=== PATIENT | female | born 1975 ===

== ENCOUNTER 2024-08-30 16:02 | Emergency (ER) | payer MEDICAID, SELFPAY ==
--- NOTE | ~2024-08-30 | CT_ITS ---
CLINICAL HISTORY: abdominal pain CT abdomen and pelvis with contrast Comparison: None Findings: The lung bases are clear. There is a small hiatal hernia. The liver, spleen, pancreas, and adrenal glands are unremarkable. Patient is status post cholecystectomy. There is a 5 mm nonobstructing left renal stone. Right kidney is unremarkable. There is a fluid collection within the midline anterior abdominal wall measuring 5.2 x 1.7 cm. There appears to be an incision in the anterior abdominal wall and fat stranding suggestive of recent surgery. There is mild colonic diverticulosis. The remainder of the gastrointestinal tract is unremarkable. There are no enlarged lymph nodes. The aorta and IVC appear normal. Patient is status post hysterectomy. The ovaries are grossly unremarkable. There is no fracture or suspicious lytic or sclerotic lesion IMPRESSION: 1. 5.2 x 1.7 cm fluid collection with the midline anterior abdominal wall possibly seroma, abscess, or subacute to chronic hematoma. 2. Apparent incision in the abdominal wall and fat stranding suggestive of recent surgery. 3. Chronic findings as above. This document has been electronically signed by: Marcelo Dickinson MD on 08/31/2024 01:12:24
[2024-08-30 16:57] VITALS: BP 151/95; PULSE 95; RESP 18; TEMP 36.5; O2SAT 99; BMI 29.0
[2024-08-30 20:54] LABS: MANUAL DIFF FLAG NO
[2024-08-30 20:55] LABS: Basophils Percent Auto 0.5 % (0-2); Eosinophils Absolute Auto 0.1 X10*3/uL (0.0-0.4); Eosinophils Percent Auto 1.7 % (0-4); Hematocrit 36.8 % (37.0-47.0); Hemoglobin 11.4 g/dl (12.0-16.0); Imm Gran Abs Auto 0.03 X10*3/uL (0.00-0.03); Imm Gran Pct Auto 0.4 % (0.0-0.4); Lymphocytes Absolute Auto 3.2 X10*3/uL (1.2-4.9); Lymphocytes Percent Auto 42.1 % (20-40); Mean Corpuscular Hemoglobin 24.3 pg (27.0-33.0); Mean Corpuscular Volume 78.5 fL (80.0-98.0); Monocytes Absolute Auto 0.6 X10*3/uL (0.1-1.2); Monocytes Percent Auto 7.5 % (2-11); Neutrophils Absolute Auto 3.6 x10*3/uL (2.0-8.3); Neutrophils Percent Auto 47.8 % (45-73); Platelet Count 243 X10*3/uL (160-400); Red Blood Count 4.69 X10*6/uL (4.20-5.50); Red Cell Distribution Width 15.1 % (11.0-16.0); White Blood Count 7.6 X10*3/uL (4.8-10.8)
[2024-08-30 21:18] LABS: Alanine Aminotransferase 25 U/L (0-31); Albumin Level 4.2 g/dL (3.5-5.0); Alkaline Phosphatase 74 U/L (39-117); Anion Gap 11 (12-20); Aspartate Amino Transferase 21 U/L (5-31); Bilirubin Total 0.2 mg/dL (0.0-1.0); Blood Urea Nitrogen 8 mg/dL (9-16); Calcium 9.1 mg/dL (8.4-10.2); Carbon Dioxide 24 mmol/L (22-29); Chloride 111 mmol/L (96-108); Creatinine Clr Calc Pharmacy 97.8; Estimated Glomerular Filt Rate > 60; Glucose Random 124 mg/dL (60-115); HCG Quantitative < 2 mIU/mL; Lipase 19 U/L (8-78); Potassium 4.2 mmol/L (3.3-5.1); Sodium 142 mmol/L (135-145); Total Protein 7.4 g/dL (6.5-8.0)
[2024-08-31] VITALS: BP 150/79; PULSE 74; RESP 16; TEMP 36.4; O2SAT 100
[2024-08-31] MEDS: iohexoL 350 MG/ML 100 ML INFUS..BTL 85 ML IV (00:17)
--- NOTE | 2024-08-31 02:17 | ED.ABDPAIN ---
HPI - Abdominal Pain General Chief Complaint: Abdominal Pain Stated Complaint: Diverticulitis? Sent by Time Seen by Provider: 08/31/24 00:02 Source: patient Limitations: no limitations History of Present Illness ED Provider: Idalia Kirk PA-C HPI narrative: 49-year-old female who is status post panniculectomy, presents with lower abdominal pain x1 week. Pain over lower abdomen, primarily on the left, it is nonradiating described as cramping. Associated nausea and diarrhea, no active vomiting or fever. Patient does have sick contacts who have had influenza. Patient was seen by her primary care provider who advised that she be assessed in the emergency department. Her doctor already preemptively ordered antibiotics in the event that she required treatment. Related Data Allergies Allergy/AdvReac Type Severity Reaction Status Date / Time acetaminophen [From Percocet] Allergy Hives Verified 08/30/24 16:58 oxycodone [From Percocet] Allergy Hives Verified 08/30/24 16:58 Review of Systems Review of Systems Yes all other systems are reviewed and are negative Constitutional: Denies fatigue and Denies fever(s) Cardiovascular: Denies chest pain Gastrointestinal: Reports abdominal pain, Reports diarrhea and Denies vomiting Endocrine: Denies fatigue PMFSH Past Medical History Attestation statement: The following information was validated with the patient. Social History Social History Smoked in Last 30 Days: No Use of substances other than those prescribed or required for medical reasons: No Advance Directives: No Do you have a plan to hurt others: No Plan Physical Exam ED Vital Signs: Vital Signs - 24 hr 08/30/24 16:57 08/31/24 00:00 Temperature 97.7 F 97.6 F Pulse Rate 95 74 Respiratory Rate 18 16 Blood Pressure 151/95 H 150/79 H Pulse Oximetry 99 100 Oxygen Delivery Method Room Air Room Air BMI result Body Mass Index 29.0 Const Other: Alert Orientation/consciousness: patient oriented x3 Resp Effort & Inspection: normal respiratory effort Cardio Other: Normal peripheral perfusion GI Other: Abdomen is soft, nondistended nontender no guarding Skin Other: Warm dry no rash Neuro General: patient oriented x3, gait normal, no focal motor deficits and CN's II-XI intact bilaterally Psych Other: Cooperative Medical Decision Making Medical Decision Making MDM Narrative: 49-year-old female who is status post panniculectomy, presents with lower abdominal pain x1 week. Pain over lower abdomen, primarily on the left, it is nonradiating described as cramping. Associated nausea and diarrhea, no active vomiting or fever. Patient does have sick contacts who have had influenza. Patient was seen by her primary care provider who advised that she be assessed in the emergency department. Her doctor already preemptively ordered antibiotics in the event that she required treatment. No recent travel or use of antibiotics. Problem: Recent surgery, recent sick contacts History: Per patient I have considered the following differential diagnoses: Diverticulitis, viral gastroenteritis, postsurgical complication, C diff, traveler's diarrhea Plan: Screening labs and a CT scan were already obtained from triage. I am waiting on results. This could be diverticulitis given the nature of her symptoms and location of pain, CT pending. Given sick contacts, this could also be GI symptoms associated with influenza. The patient could also have a postsurgical complication given recent panniculectomy. She does technically have risk factors for C diff given recent surgery with the hospitalization, she has not been on antibiotics. Her diarrhea is essentially resolving, so probably not C diff. she has no risk factor for traveler's diarrhea. I have independently reviewed the following tests: Labs: No leukocytosis, not anemic, no electrolyte abnormality noted CT abdomen and pelvis:IMPRESSION: 1. 5.2 x 1.7 cm fluid collection with the midline anterior abdominal wall possibly seroma, abscess, or subacute to chronic hematoma. 2. Apparent incision in the abdominal wall and fat stranding suggestive of recent surgery. 3. Chronic findings as above. This document has been electronically signed by: Marcelo Dickinson MD on 08/31/2024 01:12:24 I relayed findings with the patient, she will follow up with her surgeon. Lab Data 08/30/24 20:49 08/30/24 20:49 Labs: Lab Results 08/30/24 Range/Units 20:49 WBC 7.6 (4.8-10.8) X10*3/uL RBC 4.69 (4.20-5.50) X10*6/uL Hgb 11.4 L (12.0-16.0) g/dl Hct 36.8 L (37.0-47.0) % MCV 78.5 L (80.0-98.0) fL MCH 24.3 L (27.0-33.0) pg MCHC 31.0 (31.0-35.0) g/dl RDW 15.1 (11.0-16.0) % Plt Count 243 (160-400) X10*3/uL MPV 12.0 (9.4-12.3) fL Immature Gran % (Auto) 0.4 (0.0-0.4) % Neut % (Auto) 47.8 (45-73) % Lymph % (Auto) 42.1 H (20-40) % Bradley % (Auto) 7.5 (2-11) % Eos % (Auto) 1.7 (0-4) % Baso % (Auto) 0.5 (0-2) % Lymph # (Auto) 3.2 (1.2-4.9) X10*3/uL Bradley # (Auto) 0.6 (0.1-1.2) X10*3/uL Eos # (Auto) 0.1 (0.0-0.4) X10*3/uL Baso # (Auto) 0.0 (0.0-0.2) X10*3/uL Abs Immat Gran (auto) 0.03 (0.00-0.03) X10*3/uL Absolute Neuts (auto) 3.6 (2.0-8.3) x10*3/uL Absolute Nucleated RBC 0.000 (0.0-0.012) X10*3/uL Nucleated RBC % (auto) 0.0 (0.0-0.2) /100WBC Sodium 142 (135-145) mmol/L Potassium 4.2 (3.3-5.1) mmol/L Chloride 111 H (96-108) mmol/L Carbon Dioxide 24 (22-29) mmol/L Anion Gap 11 L (12-20) BUN 8 L (9-16) mg/dL Creatinine 0.80 (0.5-1.4) mg/dL Estim Creat Clear Calc 97.8 Estimated GFR > 60 Random Glucose 124 H (60-115) mg/dL Calcium 9.1 (8.4-10.2) mg/dL Total Bilirubin 0.2 (0.0-1.0) mg/dL AST 21 (5-31) U/L ALT 25 (0-31) U/L Alkaline Phosphatase 74 (39-117) U/L Total Protein 7.4 (6.5-8.0) g/dL Albumin 4.2 (3.5-5.0) g/dL Lipase 19 (8-78) U/L Beta HCG, Quant < 2 mIU/mL Medications Administered Discontinued Medications Generic Name Dose Route Start Last Admin Trade Name Fabriceq PRN Reason Stop Dose Admin Iohexol 85 ml 08/31/24 00:17 08/31/24 00:17 Iohexol 350 Mg/Ml 100 Ml Infus..Btl IV 08/31/24 00:18 85 ml ONCE ONE Administration Discharge Plan Discharge Clinical Impression: Abdominal pain Patient Disposition: Home, Self-Care Instructions: Abdominal Pain (ED) Additional Instructions: The CT scan was negative for acute intra-abdominal pathology. You were noted to have a fluid collection within the abdominal wall, associated with your recent abdominal plasty. It is likely a seroma versus a hematoma. Follow up with your surgeon. In regard to your related gastrointestinal symptoms this was likely viral gastroenteritis. It sounds as if your symptoms have been resolving. Follow up with your primary care as needed. Interventions: ED Discharge Assessment Last Done: 08/31/24 02:45 Discharge Date/Time: 08/31/24 02:45 Print Language: Wolof
--- NOTE | 2024-08-31 02:44 | PC.NURSE ---
Iv removed, reviewed discharge instructions with pt, pt verbalized understanding, no sign of distress upon discharge. pt ambulated with a steady gait.
[2024-08-31 02:45] VITALS: BP 150/79; PULSE 74; RESP 16; TEMP 36.4; O2SAT 100
== END 2024-08-31 02:45 | disposition home or self-care (01) ==
PROVIDERS: Emergency Provider Emergency Medicine; PCP Registered Nurse
DX: R10.2 Pelvic and perineal pain (principal); Z79.899 Other long term (current) drug therapy
CPT/HCPCS: 36415; 74177; 80053; 83690; 84702; 85025; 99284; Q9967

== ENCOUNTER → 2024-08-31 00:06 | Outpatient (BNV) | payer MEDICAID, SELFPAY | PROVIDERS: Emergency Provider Emergency Medicine; PCP Registered Nurse; Visit Provider Radiology Diagnostic Radiology | DX: R10.9 Unspecified abdominal pain (principal) | CPT/HCPCS: 74177 ==